=== PATIENT | male | born 1975 | race Caucasian/White ===

== ENCOUNTER 2017-09-10 00:18 | Emergency (ER) | payer OTHER ==
[2017-09-10 00:41] VITALS: BP 103/70; PULSE 80; TEMP 97.8; BMI 28.1
--- NOTE | 2017-09-10 01:15 | PDOC ---
History of Present Illness - General History Source: Patient Exam Limitations: No Limitations - History of Present Illness Initial Comments: 09/10/17 01:36 The patient is a 42 year old male, with no significant past medical history, who presents to the emergency department with, left knee weakness. As per patient he was playing basketball at an event prior to the onset of his symptoms. After his game, he reports inability to fully bear weight on his left knee. He reports similar episodes after distinct exercise for the past 10 years. He denies any recent fevers, chills, headache or dizziness. He denies any recent nausea, vomit, diarrhea or constipation. He denies any recent chest pain or shortness of breath. He denies any recent dysuria, frequency, urgency or hematuria. Allergies: NKA Past surgical history: None reported. Social History: Nonsmoker. Denies EtOH use and recreational drug use. <Jacquie Escoto - Last Filed: 09/10/17 01:36> - General History Source: Patient Exam Limitations: No Limitations <Evgeny Denney - Last Filed: 09/10/17 01:38> - General Chief Complaint: Pain, Acute Stated Complaint: L KNEE PAIN Time Seen by Provider: 09/10/17 00:40 Past History <Jacquie Escoto - Last Filed: 09/10/17 01:36> - Suicide/Smoking/Psychosocial Hx Smoking History: Never smoked <Evgeny Denney - Last Filed: 09/10/17 01:38> - Past Medical History Allergies/Adverse Reactions: Allergies Allergy/AdvReac Type Severity Reaction Status Date / Time No Known Allergies Allergy Verified 09/10/17 00:40 Home Medications: Ambulatory Orders NK [No Known Home Medication] 09/10/17 Review of Systems - Review of Systems Able to Perform ROS?: Yes Comments:: 09/10/17 01:36 GENERAL/CONSTITUTIONAL: No fever or chills. No weakness. HEAD, EYES, EARS, NOSE AND THROAT: No change in vision. No ear pain or discharge. No sore throat. CARDIOVASCULAR: No chest pain or shortness of breath. RESPIRATORY: No cough, wheezing, or hemoptysis. GASTROINTESTINAL: No nausea, vomiting, diarrhea or constipation. GENITOURINARY: No dysuria, frequency, or change in urination. +MUSCULOSKELETAL: Pain to the left knee. No neck or back pain. SKIN: No rash NEUROLOGIC: No headache, vertigo, loss of consciousness, or change in strength/ sensation. ENDOCRINE: No increased thirst. No abnormal weight change. HEMATOLOGIC/LYMPHATIC: No anemia, easy bleeding, or history of blood clots. ALLERGIC/IMMUNOLOGIC: No hives or skin allergy. All Other Systems: Reviewed and Negative <Jacquie Escoto - Last Filed: 09/10/17 01:36> *Physical Exam - Vital Signs Last Vital Signs Temp Pulse Resp BP Pulse Ox 97.8 F 80 18 103/70 09/10/17 00:39 09/10/17 00:39 09/10/17 00:39 09/10/17 00:39 - Physical Exam Comments: 09/10/17 01:37 GENERAL: Awake, alert, and fully oriented, in no acute distress HEAD: No signs of trauma EYES: PERRLA, EOMI, sclera anicteric, conjunctiva clear ENT: Auricles normal inspection, hearing grossly normal, nares patent, oropharynx clear without exudates. Moist mucosa NECK: Normal ROM, supple, no lymphadenopathy, JVD, or masses LUNGS: Breath sounds equal, clear to auscultation bilaterally. No wheezes, and no crackles HEART: Regular rate and rhythm, normal S1 and S2, no murmurs, rubs or gallops ABDOMEN: Soft, nontender, normoactive bowel sounds. No guarding, no rebound. No masses EXTREMITIES: Negative varus and valgus. Sensations intact throughout. Ambulatory. Normal range of motion, no edema. No clubbing or cyanosis. No cords or erythema. NEUROLOGICAL: Cranial nerves II through XII grossly intact. Normal speech, normal gait SKIN: Warm, Dry, normal turgor, no rashes or lesions noted. <Jacquie Escoto - Last Filed: 09/10/17 01:36> - Vital Signs Last Vital Signs Temp Pulse Resp BP Pulse Ox 97.8 F 80 18 103/70 09/10/17 00:39 09/10/17 00:39 09/10/17 00:39 09/10/17 00:39 <Evgeny Denney - Last Filed: 09/10/17 01:38> ED Treatment Course - RADIOLOGY Radiology Studies Ordered: Category Date Time Status KNEE 2 POS-LEFT [RAD] Stat Radiology 09/10/17 00:50 Taken <Evgeny Denney - Last Filed: 09/10/17 01:38> Medical Decision Making - Medical Decision Making 09/10/17 01:12 A portion of this note was documented by scribe services under my direction. I have reviewed the details of the note, within reason, and agree with the documentation with the following case summary and management plan written by me. Patient treated in the ED. Nursing notes are reviewed and incorporated into the medical decision-making. Vital signs reviewed. Peripheral IV access obtained by the nurse, laboratory studies are drawn and sent, reviewed and interpreted by myself. Vital Signs Temp Pulse Resp BP Pulse Ox 97.8 F 80 18 103/70 09/10/17 00:39 09/10/17 00:39 09/10/17 00:39 09/10/17 00:39 42 year old M c/ no PMH p/w left knee pain. Pt was playing basketball when he felt pain in his left anterior knee. Denies numbness, weakness. Feels like it may "slide" a little bit. Obtain left knee radiograph to r/o bony injury. If negative, MAURY wrap, weight bearing as tolerated, elevation of knee, and follow up with orthopedics. 09/10/17 01:37 Left knee radiograph reviewed, pending official radiology read. No acute findings. MAURY wrap applied. Pt understands plan and is satisfied with his care. <Evgeny Denney - Last Filed: 09/10/17 01:38> *DC/Admit/Observation/Transfer - Attestations Scribe Attestion: 09/10/17 01:37 Documentation prepared by Jacquie Escoto, acting as biomedical instrument technician for Evgeny Denney MD. <Jacquie Escoto - Last Filed: 09/10/17 01:36> - Discharge Dispostion Decision to Admit order: No <Evgeny Denney - Last Filed: 09/10/17 01:38> Diagnosis at time of Disposition: Knee pain, left Qualifiers: Chronicity: acute Qualified Code(s): M25.562 - Pain in left knee - Discharge Dispostion Disposition: HOME Condition at time of disposition: Stable - Referrals Referrals: Rajesh Garcia MD [Staff Physician] - - Patient Instructions Printed Discharge Instructions: DI for Knee Pain Additional Instructions: Wear the MAURY wrap for comfort. Elevate the leg as much as you can. Ice several times a day for several minutes. Follow up with orthopedics. Call to schedule an appointment.
== END 2017-09-10 02:08 | disposition home or self-care (01) ==
LOC: JER 00:18
DX: M25.562 Pain in left knee (principal); X50.0XXA Overexertion from strenuous movement or load, initial encounter; Y93.67 Activity, basketball; Y92.310 Basketball court as the place of occurrence of the external cause; Y99.8 Other external cause status
CPT/HCPCS: 73560-TC-LT-FY; 99281-25